=== PATIENT | male | born 1940 | race Caucasian/White ===

== ENCOUNTER → 2017-01-22 | Day surgery (SDC) | payer MEDICARE ==
[~2017-01-22] VITALS: Ht 190.5 cm; Wt 73.9 kg
[~2017-01-22] MED LIST: CALCITRIOL0.25 MCG PO; CIPRO500 MG PO; FLOMAX0.4 MG PO; LASIX40 MG PO; NORVASC5 MG PO; OMEPRAZOLE40 MG PO; PRINIVIL (ZESTRI5 MG PO; PROSCAR5 MG PO; TYLENOL325 MG PO
== END | disposition disaster alternative care site (69) ==
LOC: GPOC 10:00 → GEND 10:52
PROC: 0DB58ZX Excision of Esophagus, Via Natural or Artificial Opening Endoscopic, Diagnostic (ICD-10-PCS; principal; 2017-01-22)
PROC: 0DC58ZZ Extirpation of Matter from Esophagus, Via Natural or Artificial Opening Endoscopic (ICD-10-PCS; 2017-01-22)
PROC: 0D758ZZ Dilation of Esophagus, Via Natural or Artificial Opening Endoscopic (ICD-10-PCS; 2017-01-22)
DX: T18.128A Food in esophagus causing other injury, initial encounter (principal); K22.2 Esophageal obstruction; E21.3 Hyperparathyroidism, unspecified; I10 Essential (primary) hypertension; Z98.890 Other specified postprocedural states; Z79.899 Other long term (current) drug therapy
CPT/HCPCS: C1726

== ENCOUNTER → 2017-03-30 | Day surgery (SDC) | payer MEDICARE ==
[~2017-03-30] VITALS: Ht 190.5 cm; Wt 73.4 kg
== END ==
LOC: GPOC 03-24 09:00 → GEND 07:38 → GPOC 04-03 09:00
PROC: 0DB98ZX Excision of Duodenum, Via Natural or Artificial Opening Endoscopic, Diagnostic (ICD-10-PCS; principal; 2017-03-30)
DX: K44.9 Diaphragmatic hernia without obstruction or gangrene (principal); I10 Essential (primary) hypertension; Z98.890 Other specified postprocedural states
CPT/HCPCS: J2001; J7030